=== PATIENT | female | born 1985 | race Caucasian/White ===

== ENCOUNTER → 2018-02-17 | Outpatient (REF) | payer OTHER ==
[2018-02-17 14:01] LABS: INFLUENZA A AMPLIFICATION NEGATIVE (NEGATIVE); INFLUENZA B AMPLIFICATION NEGATIVE (NEGATIVE)
== END ==
LOC: M LAB REF 12:57
DX: J11.1 Influenza due to unidentified influenza virus with other respiratory manifestations (principal)
CPT/HCPCS: 87070

== ENCOUNTER 2018-03-16 09:32 | Emergency (ER) | payer OTHER ==
[2018-03-16] MEDS ORDERED: LIDOCAINE VISCOUS 2% SOLN 15ML UDC MT (10:45)
== END 2018-03-16 10:59 | disposition home or self-care (01) ==
LOC: M ED 09:32
DX: K04.7 Periapical abscess without sinus (principal); K08.89 Other specified disorders of teeth and supporting structures
CPT/HCPCS: 99282

== ENCOUNTER 2018-12-22 14:08 | Emergency (ER) | payer OTHER ==
[~2018-12-22] VITALS: Ht 167.6 cm; Wt 79.5 kg
[~2018-12-22 14:08] MED LIST: CLEO300C2 PO; MOTR200T44 PO; NORCOTAB PO; TYLE325T5 PO
[2018-12-22] MEDS ORDERED: FLUO20CA19 (14:42)
[2018-12-22 15:09] LABS: HEMOGLOBIN 10.7 g/dl (12.0-15.5); MEAN CORPUSCULAR HEMOGLOBIN 27.8 pg (27.0-33.0); MEAN CORPUSCULAR HGB CONC 31.5 g/dl (32.0-36.5); MEAN CORPUSCULAR VOLUME 88.3 fl (80.0-96.0); PLATELET COUNT, AUTOMATED 346 10^3/uL (150-450); RED BLOOD COUNT 3.85 10^6/uL (4.00-5.40); WHITE BLOOD COUNT 8.7 10^3/uL (4.0-10.0)
[2018-12-22 15:49] LABS: ACETAMINOPHEN LEVEL < 2.0 UG/ML (10.0-30.0); ALBUMIN 3.7 GM/DL (3.2-5.2); ALT/SGPT 19 U/L (12-78); BILIRUBIN,DIRECT 0.1 MG/DL (0.0-0.2); BILIRUBIN,TOTAL 0.4 MG/DL (0.2-1.0); BLOOD UREA NITROGEN 10 MG/DL (7-18); CALCIUM LEVEL 8.3 MG/DL (8.5-10.1); CARBON DIOXIDE LEVEL 25 MEQ/L (21-32); CHLORIDE LEVEL 107 MEQ/L (98-107); CREATININE FOR GFR 0.58 MG/DL (0.55-1.30); ETHYL ALCOHOL (ETHANOL) 0.005 % (0.000-0.010); GLOMERULAR FILTRATION RATE > 60.0 (>60); GLUCOSE, FASTING 91 MG/DL (70-100); SALICYLATE LEVEL < 1.7 MG/DL (5.0-30.0); SODIUM LEVEL 140 MEQ/L (136-145); TOTAL PROTEIN 6.9 GM/DL (6.4-8.2)
[2018-12-22 16:24] LABS: AMPHETAMINES LEVEL URINE NEGATIVE (NEGATIVE); BARBITURATES URINE NEGATIVE (NEGATIVE); BENZODIAZEPINES URINE NEGATIVE (NEGATIVE); CANNABINOIDS URINE NEGATIVE (NEGATIVE); COCAINE METABOLITE URINE NEGATIVE (NEGATIVE); METHADONE URINE NEGATIVE (NEGATIVE); OPIATES URINE NEGATIVE (NEGATIVE); PHENCYCLIDINE URINE NEGATIVE (NEGATIVE)
[2018-12-22] MEDS ORDERED: LORazepam 1 MG TAB PO ONE (17:15)
[2018-12-23] MEDS ORDERED: ACETAMINOPHEN TAB 650MG DOSE (2X325MG) PO ONE (08:15)
[2018-12-23 10:20] VITALS: BP 106/55
== END 2018-12-23 10:22 | disposition short-term general hospital (02) ==
LOC: M ED 14:08
DX: R45.851 Suicidal ideations (principal); F32.9 Major depressive disorder, single episode, unspecified
CPT/HCPCS: 80048; 80076; 80307; 84443; 85027; 99284; G0480

== ENCOUNTER 2019-05-16 08:46 | Day surgery (SDC) | payer OTHER ==
[~2019-05-16] VITALS: Ht 170.2 cm; Wt 78.6 kg
[~2019-05-16 08:46] MED LIST changes: +FLUO20CA19; +HYDR-3715 PO; -NORCOTAB PO
[2019-05-16] MEDS ORDERED: CLON-412 (08:51)
[2019-05-16 09:15] LABS: BASO # 0.1 10^3/uL (0.0-0.2); BASO % 0.5 % (0.0-1.0); EOS # 0.1 10^3/uL (0.0-0.50); EOS % 0.8 % (0.0-3.0); HEMATOCRIT 34.6 % (36.0-47.0); LYMPH # 1.2 10^3/uL (1.5-4.5); LYMPH % 11.8 % (24.0-44.0); MEAN CORPUSCULAR HEMOGLOBIN 28.6 pg (27.0-33.0); MEAN CORPUSCULAR HGB CONC 31.8 g/dl (32.0-36.5); MEAN CORPUSCULAR VOLUME 89.9 fl (80.0-96.0); MONO # 0.8 10^3/uL (0.0-0.8); MONO % 7.8 % (0.0-5.0); NEUTROPHILS # 8.2 10^3/uL (1.8-7.7); NEUTROPHILS % 78.7 % (36.0-66.0); PLATELET COUNT, AUTOMATED 295 10^3/uL (150-450); RED BLOOD COUNT 3.85 10^6/uL (4.00-5.40); WHITE BLOOD COUNT 10.4 10^3/uL (4.0-10.0)
[2019-05-16] MEDS ORDERED: ONDANSETRON 4MG/2ML VIAL (J2405) IV ONE (09:30)
[2019-05-16 09:42] LABS: ALBUMIN 3.4 GM/DL (3.2-5.2); ALT/SGPT 26 U/L (12-78); BILIRUBIN,DIRECT 0.2 MG/DL (0.0-0.2); BILIRUBIN,TOTAL 0.7 MG/DL (0.2-1.0); BLOOD UREA NITROGEN 12 MG/DL (7-18); CALCIUM LEVEL 8.6 MG/DL (8.5-10.1); CARBON DIOXIDE LEVEL 27 MEQ/L (21-32); CHLORIDE LEVEL 104 MEQ/L (98-107); CREATININE FOR GFR 0.74 MG/DL (0.55-1.30); GLOMERULAR FILTRATION RATE > 60.0 (>60); GLUCOSE, FASTING 115 MG/DL (70-100); LIPASE 90 U/L (73-393); POTASSIUM SERUM 3.6 MEQ/L (3.5-5.1); SODIUM LEVEL 138 MEQ/L (136-145); TOTAL PROTEIN 6.7 GM/DL (6.4-8.2)
[2019-05-16 09:46] LABS: HCG, SERUM QUALITATIVE NEGATIVE (NEGATIVE)
[2019-05-16 09:59] LABS: APPEARANCE, URINE HAZY (CLEAR); BACTERIA, URINE AUTO NEGATIVE (NEGATIVE); BILIRUBIN, URINE AUTO NEGATIVE (NEGATIVE); BLOOD, URINE BLOOD NEGATIVE (NEGATIVE); COLOR, URINE YELLOW (YELLOW); GLUCOSE, URINE (UA) AUTO NEGATIVE (NEGATIVE); KETONE, URINE AUTO NEGATIVE (NEGATIVE); LEUKOCYTE ESTERASE, URINE AUTO TRACE (NEGATIVE); MUCUS, URINE SMALL (NEGATIVE); NITRITE, URINE AUTO NEGATIVE (NEGATIVE); PROTEIN, URINE AUTO NEGATIVE (NEGATIVE); RBC, URINE AUTO 3 /HPF (0-3); SPECIFIC GRAVITY URINE AUTO 1.021 (1.002-1.035); SQUAMOUS EPITHELIAL CELL UR AU 2 /HPF (0-6); UROBILINOGEN, URINE AUTO 0.2 mg/dL (0.0-2.0); WBC, URINE AUTO 1 /HPF (0-3)
[2019-05-16] MEDS ORDERED: KETOROLAC 30 MG/ML VIAL (J1885) IV ONE (10:15)
[2019-05-16] MEDS ORDERED: ISOVUE-370 76% 100ML VIAL (Q9967) As Ordered ONE (10:19)
[2019-05-16] MEDS ORDERED: NS 1,000 ML IV ONE (10:30)
--- NOTE | 2019-05-16 11:18 | REP ---
CT of the abdomen and pelvis with IV contrast, without bowel contrast: There are no comparisons. The visualized lung heath are unremarkable. The hepatic parenchyma, gallbladder, pancreas and spleen are unremarkable. The adrenals are unremarkable. The kidneys are unremarkable. The abdominal aorta is unremarkable. There is no periaortic adenopathy or mass. There is no bowel distension or obstruction. Pelvis: The appendix is distended measuring up to 10 mm transverse diameter. There is mild periappendiceal phlegmon at the appendix base. These findings are compatible with acute appendicitis but the to be correlated with laboratory and clinical findings. There is a dilated tubular shaped structure in the right adnexa measuring up to 2.0 cm in diameter, compatible with hydrosalpinx. There is a 4.7 cm cyst in the left adnexa. There is no pelvic free fluid. The uterus is unremarkable. The bladder is unremarkably there is no pelvic adenopathy or ascites. Impression: The appendix is distended and there is mild phlegmon at the appendix base. Findings are compatible with appendicitis, however, require correlation with laboratory clinical findings. Additionally, there are findings compatible with right hydrosalpinx. There is a large left adnexal cyst. Electronically Signed by Scotty Ritter MD 05/16/2019 11:10 A
[2019-05-16] MEDS ORDERED: ONDANSETRON 4MG/2ML VIAL (J2405) As Ordered ONE (11:47)
[2019-05-16] MEDS ORDERED: LIDOCAINE 2% INJ 100 MG/5 ML SDV (FOR ANES.) As Ordered ONE (11:47)
[2019-05-16] MEDS ORDERED: PROPOFOL 200 MG/20 ML VIAL As Ordered ONE (11:47)
[2019-05-16] MEDS ORDERED: dexameTHASONE 4 MG/ML 1ML VIAL (J1100) As Ordered ONE (11:47)
[2019-05-16] MEDS ORDERED: ROCURONIUM BROMIDE 50 MG/5 ML VIAL As Ordered ONE (11:47)
[2019-05-16] MEDS ORDERED: MIDAZOLAM INJ 2 MG/2 ML VIAL (J2250) As Ordered ONE (11:48)
[2019-05-16] MEDS ORDERED: fentaNYL 100 MCG/2 ML INJECTION (J3010) As Ordered ONE ×2 (11:49→13:02)
[2019-05-16] MEDS ORDERED: KETOROLAC 60 MG/2 ML VIAL (J1885) As Ordered ONE (11:51)
[2019-05-16] MEDS ORDERED: BUPIVACAINE HCL 0.25% 30 ML VIAL As Ordered ONE (11:54)
[2019-05-16] MEDS ORDERED: ZOSYN 3.375 GM VIAL (J2543) As Ordered ONE (12:02)
[2019-05-16] MEDS ORDERED: NORC1TAB7 PO (12:16)
[2019-05-16] MEDS ORDERED: SUGAMMADEX SODIUM 500 MG/5 ML VIAL (BRIDION) As Ordered ONE (12:25)
[2019-05-16] MEDS ORDERED: ACETAMINOPHEN 1000MG 100ML IV BTL (OFIRMEV) (J0131 PER 10MG) As Ordered ONE (12:25)
[2019-05-16] MEDS ORDERED: PHENYLephrine HCL 500 MCG/5 ML (100MCG/ML) SYRINGE (J2370) As Ordered ONE (12:31)
[2019-05-16] MEDS ORDERED: ZOSYN 3.375 GM VIAL (J2543) IV ONE (12:35)
[2019-05-16] MEDS ORDERED: AMOX875T2 PO (12:48)
--- NOTE | 2019-05-16 12:48 | CR ---
DATE OF ADMISSION: 05/16/2019 REASON FOR CONSULTATION: Right lower quadrant pain. HISTORY OF PRESENT ILLNESS: The patient is a 34-year female who presents with abdominal pain that started yesterday evening. It got progressively worse over the night. She had nausea, no emesis. A slight low grade fever. No change in bowel movements. No recent trauma or travel. No change in medications and no recent illnesses. She came to the ER this morning, had a slightly elevated white count at 10.[address] scan suspicious for acute appendicitis, therefore I was called to evaluate. PAST MEDICAL HISTORY: Anxiety. PAST SURGICAL HISTORY: None. ALLERGIES: None. MEDICATIONS: Please see med rec. FAMILY HISTORY: Noncontributory. SOCIAL HISTORY: Negative. Denies drug, alcohol, tobacco abuse. REVIEW OF SYSTEMS: Pertinent positives and negatives as stated in the HPI. PHYSICAL EXAMINATION GENERAL: Alert and oriented times three. No acute distress. VITALS: Temperature 98.6, pulse 83, respirations 18, blood pressure 95/50, pulse ox 98% room air. HEENT: Pupils equal, round and reactive to light and accommodation. HEART: S1, S2 regular rate and rhythm. LUNGS: Clear to auscultation bilaterally. ABDOMEN: Soft, tender to palpation in right lower quadrant. Localized guarding. No rebounding or rigidity. EXTREMITIES: No clubbing, cyanosis, edema. LABORATORIES: White count 10.4, hemoglobin 11, platelets 295. Sodium 138, potassium 3.6, creatinine 0.74. IMAGING: CT abdomen and pelvis was obtained which shows a dilated to tubular shaped structure on the right adnexa measuring up to 2 cm in diameter compatible with hydrosalpinx. A 4.7 cm cyst on the left adnexa. Appendix is distended with mild phlegmon at the appendix base, findings compatible with appendicitis. However, require correlation with laboratory and clinical findings. ASSESSMENT/PLAN: The patient is again a 34-year-old female with signs and symptoms consistent with possible appendicitis. Recommendation is to proceed laparoscopic possible open appendectomy. Risks and benefit of the procedure not limited but including bleeding, infection, hernia formation, damage to surrounding structures, need for further surgery were discussed in detail with the patient. Informed consent was obtained and procedure was planned. Postoperatively, as long as everything goes as planned, the plan will be to discharge her straight home and she can follow-up with me in two weeks outpatient for follow-up.
[2019-05-16] MEDS: fentaNYL 100 MCG/2 ML INJECTION (J3010) IV PRN ×2 (13:03→13:09)
[2019-05-16] MEDS ORDERED: oxyCODONE 5MG TAB As Ordered ONE (13:10)
[2019-05-16] MEDS: LACTATED RINGER'S 1000 ML IV ONE ×2 (13:14→13:15)
[2019-05-16] MEDS ORDERED: LR 1,000 ML IV SCH (13:15)
[2019-05-16] MEDS ORDERED: ONDANSETRON 4MG/2ML VIAL (J2405) IV PRN (13:15)
[2019-05-16] MEDS ORDERED: oxyCODONE 5MG TAB PO PRN (13:15)
[2019-05-16] MEDS ORDERED: LR 500 ML IV SCH ×2 (13:45→14:30)
[2019-05-16] MEDS ORDERED: NORCO, ANEXSIA 5/325MG TABLET (HYDROcodone/ACETAMINOPHEN) PO PRN (13:45)
[2019-05-16] MEDS ORDERED: LACTATED RINGER'S 1000 ML IV PRN (14:15)
[2019-05-16] MEDS: LACTATED RINGER'S 1000 ML IV PRN ×2 (14:20→14:33)
[2019-05-16] MEDS ORDERED: LACTATED RINGER'S 1000 ML IV ONE (14:45)
[2019-05-16 15:15] VITALS: BP 109/69
[2019-05-16 15:45] VITALS: BP 96/51
[2019-05-16 16:15] VITALS: BP 95/53
[2019-05-16 17:00] VITALS: BP 95/58
[2019-05-16 18:00] VITALS: BP 108/63
[2019-05-16] MEDS ORDERED: AUGMENTIN 875 MG TAB PO ONE (19:00)
--- NOTE | 2019-05-17 14:55 | RO ---
DATE OF PROCEDURE: 05/16/2019 PREOPERATIVE DIAGNOSIS: Acute appendicitis. POSTOPERATIVE DIAGNOSIS: Acute appendicitis. PROCEDURE: Laparoscopic appendectomy. SURGEON: Dr. Rehman. SCHOOL CLERK: None. ANESTHESIA: General. ESTIMATED BLOOD LOSS: 5 mL. COMPLICATIONS: None. INDICATION FOR PROCEDURE: The patient 34-year-old female who presented with right lower quadrant pain and found to have acute appendicitis. Recommendation to proceed with laparoscopic, possible open appendectomy. Risks, benefits of procedure not limited to but including bleeding, infection, hernia formation, damage to surrounding structures, need for further surgery were discussed in detail with the patient. Informed consent was obtained and procedure was planned. DESCRIPTION OF PROCEDURE: The patient brought back to operating room 2. After sufficient sedation, the abdomen was sterilely prepped and draped. Next, time-out was done to confirm proper patient and proper procedure. A 5 mm incision was made in the left lower quadrant and Veress needle was inserted. The abdomen was insufflated to 50 mmHg. Next, the Veress needle was removed and a 5 mm Optiview port was used to gain access to the abdomen. Once the abdomen was entered, an 8 mm port was placed supraumbilically in the midline and 5 mm port suprapubically in the midline. Next, the appendix was identified sticking up in the right lower quadrant. It was elevated up in the air. Mesoappendix was taken down to the base the appendix using Enseal. Once the base was reached, it was encircled twice with two PDS Endoloops and amputated using Enseal. The appendix was then placed in a 5 mm EndoCatch bag, brought out through the umbilical port site. Once that was completed, the abdomen was desufflated. Skin incision closed with 4-0 Vicryl subcuticular sutures. The abdomen was cleaned and dried, 2 x 2 and tape were applied, thus ending the procedure.
== END 2019-05-16 19:04 | disposition home or self-care (01) ==
LOC: M ED 08:46 → M SDC 11:43 → M MSPAV 15:12 → M SDC 19:04
PROVIDERS: ATTEND Surgery
DX: K35.80 Unspecified acute appendicitis (principal); F41.9 Anxiety disorder, unspecified; F32.9 Major depressive disorder, single episode, unspecified; Z79.899 Other long term (current) drug therapy
CPT/HCPCS: 44970; 80048; 80076; 81001; 83690; 84703; 85025; 88302; 96361; 96374; 96375; 99284; J0131; J1100; J1885; J2250; J2370; J2405; J2543; J3010; Q9967

== ENCOUNTER → 2021-07-02 | Outpatient (CLI) | payer OTHER ==
[~2021-07-02] MED LIST changes: +AMOX875T2 PO; +CLON-412; -FLUO20CA19; +FLUO20CA22; +NORC1TAB7 PO
[2021-07-02 13:04] LABS: APPEARANCE, URINE CLOUDY (CLEAR); BACTERIA, URINE AUTO 1+ (NEGATIVE); BILIRUBIN, URINE AUTO NEGATIVE (NEGATIVE); BLOOD, URINE BLOOD 2+ (NEGATIVE); COLOR, URINE YELLOW (YELLOW); GLUCOSE, URINE (UA) AUTO NEGATIVE (NEGATIVE); KETONE, URINE AUTO NEGATIVE (NEGATIVE); LEUKOCYTE ESTERASE, URINE AUTO TRACE (NEGATIVE); MUCUS, URINE SMALL (NEGATIVE); NITRITE, URINE AUTO NEGATIVE (NEGATIVE); PROTEIN, URINE AUTO NEGATIVE (NEGATIVE); RBC, URINE AUTO 8 /HPF (0-3); SPECIFIC GRAVITY URINE AUTO 1.021 (1.002-1.035); SQUAMOUS EPITHELIAL CELL UR AU 14 /HPF (0-6); UROBILINOGEN, URINE AUTO 0.2 mg/dL (0.0-2.0); WBC, URINE AUTO 9 /HPF (0-3)
== END ==
LOC: M RAD 12:10
PROVIDERS: ATTEND Physician Assistant Medical
DX: N39.0 Urinary tract infection, site not specified (principal)

== ENCOUNTER → 2021-07-31 | Outpatient (REF) | payer OTHER | LOC: M LAB REF 13:37 | PROVIDERS: ATTEND Physician Assistant Medical | DX: Z20.822 Contact with and (suspected) exposure to COVID-19 (principal) ==

== ENCOUNTER → 2022-03-27 | Outpatient (REF) | payer OTHER ==
[2022-03-27 17:06] LABS: BASO # 0.1 10^3/uL (0.0-0.2); BASO % 0.8 % (0.0-1.0); EOS # 0.3 10^3/uL (0.0-0.5); EOS % 3.5 % (0.0-3.0); HEMOGLOBIN 10.4 g/dl (12.0-15.5); LYMPH # 3.2 10^3/uL (1.5-5.0); LYMPH % 33.7 % (24.0-44.0); MEAN CORPUSCULAR HEMOGLOBIN 24.9 pg (27.0-33.0); MEAN CORPUSCULAR HGB CONC 29.7 g/dl (32.0-36.5); MEAN CORPUSCULAR VOLUME 83.9 fl (80.0-96.0); MONO # 0.8 10^3/uL (0.0-0.8); MONO % 8.8 % (2.0-8.0); NEUTROPHILS % 52.9 % (36.0-66.0); PLATELET COUNT, AUTOMATED 420 10^3/uL (150-450); RED BLOOD COUNT 4.17 10^6/uL (4.00-5.40); WHITE BLOOD COUNT 9.5 10^3/uL (4.0-10.0)
[2022-03-27 19:42] LABS: ALBUMIN 3.5 GM/DL (3.2-5.2); ALT/SGPT 28 U/L (12-78); BILIRUBIN,TOTAL 0.2 MG/DL (0.2-1.0); BLOOD UREA NITROGEN 13 MG/DL (7-18); CARBON DIOXIDE LEVEL 26 MEQ/L (21-32); CHLORIDE LEVEL 105 MEQ/L (98-107); CREATININE FOR GFR 0.68 MG/DL (0.55-1.30); FREE T4 0.93 NG/DL (0.76-1.46); GLOMERULAR FILTRATION RATE > 60.0 (>60); GLUCOSE, FASTING 85 MG/DL (70-100); POTASSIUM SERUM 4.3 MEQ/L (3.5-5.1); SODIUM LEVEL 139 MEQ/L (136-145)
[2022-03-27 21:33] LABS: TOTAL T3 129.6 NG/DL (60.0-181.0)
== END ==
LOC: M LAB REF 16:26
PROVIDERS: ATTEND Physician Assistant
DX: R53.83 Other fatigue (principal); R63.5 Abnormal weight gain

== ENCOUNTER → 2022-05-04 | Outpatient (CLI) | payer OTHER ==
[2022-05-04 10:34] LABS: HEMATOCRIT 34.9 % (36.0-47.0); HEMOGLOBIN 10.6 g/dl (12.0-15.5); MEAN CORPUSCULAR HEMOGLOBIN 24.7 pg (27.0-33.0); MEAN CORPUSCULAR HGB CONC 30.4 g/dl (32.0-36.5); MEAN CORPUSCULAR VOLUME 81.4 fl (80.0-96.0); PLATELET COUNT, AUTOMATED 420 10^3/uL (150-450); RED BLOOD COUNT 4.29 10^6/uL (4.00-5.40); WHITE BLOOD COUNT 5.4 10^3/uL (4.0-10.0)
[2022-05-04 11:05] LABS: CHOLESTEROL LEVEL 196 MG/DL (<200); CHOLESTEROL RISK RATIO 3.438 (<5); HDL CHOLESTEROL 57 MG/DL (>40); LDL CHOLESTEROL 116 MG/DL (<100); NON-HDL-C 139 MG/DL; TRIGLYCERIDES LEVEL 115 MG/DL (<150)
[2022-05-06 13:08] LABS: ALBUMIN 3.3 GM/DL (3.2-5.2); ALT/SGPT 53 U/L (12-78); BILIRUBIN,TOTAL 0.4 MG/DL (0.2-1.0); BLOOD UREA NITROGEN 10 MG/DL (7-18); CALCIUM LEVEL 9.1 MG/DL (8.5-10.1); CARBON DIOXIDE LEVEL 20 MEQ/L (21-32); CHLORIDE LEVEL 108 MEQ/L (98-107); CREATININE FOR GFR 0.74 MG/DL (0.55-1.30); GLOMERULAR FILTRATION RATE > 60.0 (>60); GLUCOSE, FASTING 79 MG/DL (70-100); POTASSIUM SERUM 5.6 MEQ/L (3.5-5.1); SODIUM LEVEL 139 MEQ/L (136-145)
== END ==
LOC: M LAB 08:33
PROVIDERS: ATTEND Physician Assistant
DX: E66.9 Obesity, unspecified (principal); Z13.220 Encounter for screening for lipoid disorders; Z13.1 Encounter for screening for diabetes mellitus; F41.9 Anxiety disorder, unspecified; F32.A Depression, unspecified; F51.04 Psychophysiologic insomnia; Z11.59 Encounter for screening for other viral diseases

== ENCOUNTER → 2022-07-25 | Outpatient (CLI) | payer OTHER | LOC: M RAD 09:19 | PROVIDERS: ATTEND Physician Assistant | DX: M54.50 Low back pain, unspecified (principal) ==

== ENCOUNTER → 2022-10-04 | Outpatient (REF) | payer OTHER ==
[2022-10-04 17:43] LABS: ALBUMIN 3.4 GM/DL (3.2-5.2); ALT/SGPT 57 U/L (12-78); BILIRUBIN,TOTAL 0.5 MG/DL (0.2-1.0); BLOOD UREA NITROGEN 11 MG/DL (7-18); CALCIUM LEVEL 9.1 MG/DL (8.5-10.1); CARBON DIOXIDE LEVEL 28 MEQ/L (21-32); CHLORIDE LEVEL 104 MEQ/L (98-107); GLOMERULAR FILTRATION RATE > 60.0 (>60); GLUCOSE, FASTING 105 MG/DL (70-100); SODIUM LEVEL 137 MEQ/L (136-145); TOTAL PROTEIN 6.7 GM/DL (6.4-8.2)
[2022-10-07 10:46] LABS: HEPATITIS C VIRUS ABY INDEX 0.2 INDEX (<0.8)
== END ==
LOC: M LAB REF 16:16
PROVIDERS: ATTEND Physician Assistant
DX: E87.5 Hyperkalemia (principal); Z11.59 Encounter for screening for other viral diseases

== ENCOUNTER → 2023-02-06 | Outpatient (CLI) | payer OTHER ==
[2023-02-06 14:16] LABS: BASO # 0.1 10^3/uL (0.0-0.2); BASO % 0.7 % (0.0-1.0); EOS # 0.3 10^3/uL (0.0-0.5); EOS % 3.6 % (0.0-3.0); HEMATOCRIT 37.5 % (36.0-47.0); HEMOGLOBIN 11.9 g/dl (12.0-15.5); LYMPH % 35.3 % (24.0-44.0); MEAN CORPUSCULAR HEMOGLOBIN 28.4 pg (27.0-33.0); MEAN CORPUSCULAR HGB CONC 31.7 g/dl (32.0-36.5); MEAN CORPUSCULAR VOLUME 89.5 fl (80.0-96.0); MONO # 0.7 10^3/uL (0.0-0.8); MONO % 7.7 % (2.0-8.0); NEUTROPHILS # 4.4 10^3/uL (1.5-8.5); NEUTROPHILS % 52.3 % (36.0-66.0); PLATELET COUNT, AUTOMATED 407 10^3/uL (150-450); RED BLOOD COUNT 4.19 10^6/uL (4.00-5.40); WHITE BLOOD COUNT 8.4 10^3/uL (4.0-10.0)
[2023-02-06 15:39] LABS: FOLATE 16.5 NG/ML (>5.4); VITAMIN B12 LEVEL 291 PG/ML (211-911)
[2023-02-06 16:15] LABS: ALBUMIN 3.3 G/DL (3.2-5.2); ALKALINE PHOSPHATASE 92 U/L (46-116); ALT/SGPT 33 U/L (7.0-40); AST/SGOT 23 U/L (<34); BILIRUBIN,TOTAL 0.4 MG/DL (0.3-1.2); BLOOD UREA NITROGEN 17 MG/DL (9-23); CALCIUM LEVEL 8.8 MG/DL (8.5-10.1); CARBON DIOXIDE LEVEL 23 MMOL/L (20-31); CHLORIDE LEVEL 107 MMOL/L (98-107); CREATININE FOR GFR 0.78 MG/DL (0.55-1.30); GLOMERULAR FILTRATION RATE > 60.0 (>60); GLUCOSE, FASTING 84 MG/DL (60-100); POTASSIUM SERUM 3.9 MMOL/L (3.5-5.1); SODIUM LEVEL 139 MMOL/L (136-145); TOTAL PROTEIN 6.6 G/DL (5.7-8.2)
== END ==
LOC: M LAB 13:23
PROVIDERS: ATTEND Physician Assistant
DX: E87.5 Hyperkalemia (principal)

== ENCOUNTER → 2023-04-30 | Outpatient (REF) | payer OTHER ==
[2023-04-30 17:46] LABS: FERRITIN 13.1 NG/ML (7.3-270.7)
== END ==
LOC: M LAB REF 16:09
PROVIDERS: ATTEND Physician Assistant
DX: D64.9 Anemia, unspecified (principal)

== ENCOUNTER → 2023-11-28 | Outpatient (REF) | payer OTHER ==
[2023-11-28 13:40] LABS: APPEARANCE, URINE CLOUDY (CLEAR); BACTERIA, URINE AUTO 1+ (NEGATIVE); BILIRUBIN, URINE AUTO NEGATIVE (NEGATIVE); BLOOD, URINE BLOOD 1+ (NEGATIVE); COLOR, URINE YELLOW (YELLOW); GLUCOSE, URINE (UA) AUTO NEGATIVE (NEGATIVE); KETONE, URINE AUTO NEGATIVE (NEGATIVE); LEUKOCYTE ESTERASE, URINE AUTO 2+ (NEGATIVE); MUCUS, URINE SMALL (NEGATIVE); NITRITE, URINE AUTO NEGATIVE (NEGATIVE); PROTEIN, URINE AUTO 1+ mg/dL (NEGATIVE); RBC, URINE AUTO 2 /HPF (0-3); SPECIFIC GRAVITY URINE AUTO 1.026 (1.002-1.035); SQUAMOUS EPITHELIAL CELL UR AU 8 /HPF (0-6); UROBILINOGEN, URINE AUTO 0.2 mg/dL (0.0-2.0); WBC, URINE AUTO 26 /HPF (0-3)
== END ==
LOC: M LAB REF 12:14
PROVIDERS: ATTEND Physician Assistant
DX: N39.0 Urinary tract infection, site not specified (principal)

== ENCOUNTER → 2023-12-15 | Outpatient (REF) | payer OTHER | LOC: M LAB REF 17:53 | PROVIDERS: ATTEND Physician Assistant | DX: Z12.4 Encounter for screening for malignant neoplasm of cervix (principal); Z01.419 Encounter for gynecological examination (general) (routine) without abnormal findings; Z11.3 Encounter for screening for infections with a predominantly sexual mode of transmission ==

== ENCOUNTER → 2024-02-06 | Outpatient (REF) | payer OTHER ==
[2024-02-06 16:50] LABS: HEMATOCRIT 33.8 % (36.0-47.0); HEMOGLOBIN 10.6 g/dl (12.0-15.5); MEAN CORPUSCULAR HEMOGLOBIN 25.7 pg (27.0-33.0); MEAN CORPUSCULAR HGB CONC 31.4 g/dl (32.0-36.5); PLATELET COUNT, AUTOMATED 451 10^3/uL (150-450); RED BLOOD COUNT 4.12 10^6/uL (4.00-5.40); WHITE BLOOD COUNT 6.4 10^3/uL (4.0-10.0)
[2024-02-06 17:16] LABS: ALBUMIN 3.2 G/DL (3.2-5.2); ALKALINE PHOSPHATASE 82 U/L (46-116); ALT/SGPT 44 U/L (7.0-40); AST/SGOT 32 U/L (<34); BILIRUBIN,TOTAL 0.4 MG/DL (0.3-1.2); BLOOD UREA NITROGEN 11 MG/DL (9-23); CALCIUM LEVEL 8.6 MG/DL (8.5-10.1); CARBON DIOXIDE LEVEL 28 MMOL/L (20-31); CHLORIDE LEVEL 105 MMOL/L (98-107); CHOLESTEROL LEVEL 245 MG/DL (<200); CHOLESTEROL RISK RATIO 4.54 (<5); GLOMERULAR FILTRATION RATE > 60.0 (>60); GLUCOSE, FASTING 105 MG/DL (60-100); HDL CHOLESTEROL 53.9 MG/DL (>40); LDL CHOLESTEROL 152.7 MG/DL (<100); NON-HDL-C 191.1 MG/DL; POTASSIUM SERUM 4.5 MMOL/L (3.5-5.1); SODIUM LEVEL 137 MMOL/L (136-145); TOTAL PROTEIN 5.8 G/DL (5.7-8.2); TRIGLYCERIDES LEVEL 192 MG/DL (<150)
== END ==
LOC: M LAB REF 16:08
PROVIDERS: ATTEND Physician Assistant
DX: E66.01 Morbid (severe) obesity due to excess calories (principal); Z68.41 Body mass index [BMI] 40.0-44.9, adult; E78.5 Hyperlipidemia, unspecified

== ENCOUNTER → 2024-02-19 | Outpatient (CLI) | payer OTHER ==
[~2024-02-19] MED LIST changes: +E-Z-GAS II EFFERVESCENT PACKET (SODIUM BICARB./CITRIC ACID/SIMETHICONE) As Ordered ONE; +E-Z-HD 98% w/w 340GM SUSP BTL As Ordered ONE; +E-Z-PAQUE 96% w/w SUSP 176GM BTL As Ordered ONE
== END ==
LOC: M RAD 08:27
PROVIDERS: ATTEND Physician Assistant
DX: K21.9 Gastro-esophageal reflux disease without esophagitis (principal)

== ENCOUNTER → 2024-10-26 | Outpatient (CLI) | payer OTHER ==
[~2024-10-26] MED LIST changes: -E-Z-GAS II EFFERVESCENT PACKET (SODIUM BICARB./CITRIC ACID/SIMETHICONE) As Ordered ONE; -E-Z-HD 98% w/w 340GM SUSP BTL As Ordered ONE; -E-Z-PAQUE 96% w/w SUSP 176GM BTL As Ordered ONE; +FLUO-365; -FLUO20CA22
== END ==
LOC: M WUC 15:38
PROVIDERS: ATTEND Physician Assistant
DX: S90.31XA Contusion of right foot, initial encounter (principal); M79.89 Other specified soft tissue disorders; X58.XXXA Exposure to other specified factors, initial encounter; Y92.9 Unspecified place or not applicable; Y93.9 Activity, unspecified; Y99.9 Unspecified external cause status